=== PATIENT | female | born 1960 | race Asian ===

== ENCOUNTER 2019-08-22 02:08 | Emergency (ER) | payer MEDICAID ==
[~2019-08-22] VITALS: Ht 149.9 cm; Wt 50.0 kg
[~2019-08-22 02:08] MED LIST: ASPI-1 PO; ATOR20TA66 PO; FLUT16SP10 INH; IMIP50TA7 PO; LISI40TA4 PO; LORA10TA45 PO; OMEP20CA15 PO; RISP1TAB3 PO
--- NOTE | 2019-08-22 02:21 | NUR ---
poison control: recommended anti-emetics and basic lab draw. If symptoms progress, administer charcoal. Monitor patient for 6 hours.
[2019-08-22] MEDS ORDERED: normal saline 1000ML IV soln IVB ONE (02:25)
[2019-08-22] MEDS ORDERED: proCHLORperazine 10 MG/2 ml inj IV ONE (02:25)
[2019-08-22 02:39] LABS: BASOPHILS # (AUTO) 0.1 X10'3 (0-0.2); BASOPHILS % (AUTO) 0.6 % (0-1); EOSINOPHILS # (AUTO) 0.1 X10'3 (0-0.9); EOSINOPHILS % (AUTO) 1.4 % (0-6); HEMATOCRIT 40.9 % (35.0-45.0); LYMPHOCYTES # (AUTO) 1.8 X10'3 (1.1-4.8); LYMPHOCYTES % (AUTO) 22.2 % (21-51); MEAN CORPUSCULAR HGB CONC 34.3 g/dL (33.0-36.5); MEAN CORPUSCULAR VOLUME 90.4 FL (78-98); MONOCYTES # (AUTO) 0.6 X10'3 (0-0.9); MONOCYTES % (AUTO) 7.9 % (2-12); NEUTROPHILS # (AUTO) 5.5 X10'3 (1.8-7.7); NEUTROPHILS % (AUTO) 67.9 % (42-75); PLATELET COUNT 234 X10'3 (140-440); RED BLOOD COUNT 4.52 X10'6 (4.20-5.60); RED CELL DISTRIBUTION WIDTH 12.8 % (11.5-14.5); WHITE BLOOD COUNT 8.2 X10'3 (4.5-11.0)
[2019-08-22 02:55] LABS: ALANINE AMINOTRANSFERASE 28 U/L (12-78); ALKALINE PHOSPHATASE 72 IU/L (46-116); AMYLASE 95 U/L (25-115); ANION GAP 11 (8-16); ASPARTATE AMINO TRANSFERASE 25 U/L (10-37); BILIRUBIN,TOTAL 0.3 MG/DL (0.1-1.0); BLOOD UREA NITROGEN 14 MG/DL (7-18); BUN/CREATININE RATIO 13.5 (6.6-38.0); CHLORIDE 104 MMOL/L (99-107); CREATINE KINASE 294 U/L (26-192); CREATININE 1.04 MG/DL (0.40-0.90); ETHANOL < 0.010 GM/DL (0.0-0.010); GLUCOSE 154 MG/DL (70-104); LIPASE 252 U/L (73-393); MAGNESIUM 1.9 MG/DL (1.5-2.4); POTASSIUM 3.1 MMOL/L (3.5-5.1); SODIUM 142 MMOL/L (135-145); TOTAL CARBON DIOXIDE 27.3 MMOL/L (24-32); TOTAL PROTEIN 8.1 G/DL (6.4-8.2); eGFR 55 ML/MIN
[2019-08-22 02:55] LABS: CLARITY,URINE CLEAR (Clear); COLOR,URINE STRAW (Yellow); GLUCOSE, URINE NEGATIVE (Neg); KETONES,URINE NEGATIVE (Neg); LEUKOCYTE ESTERASE ,URINE NEGATIVE (Neg); NITRITES, URINE NEGATIVE (Neg); OCCULT BLOOD,URINE TRACE-INTACT (Neg); PROTEIN,URINE NEGATIVE (Neg); UROBILINOGEN,URINE 0.2 E.U/dL (0.2-1.0)
[2019-08-22 03:00] LABS: UA COLLECTION TYPE CLN CATCH MIDSTREAM; URINE AMPHETAMINE SCREEN NEGATIVE (Neg); URINE BARBITUATE SCREEN NEGATIVE (Neg); URINE BENZODIAZEPINES SCREEN NEGATIVE (Neg); URINE CANNABINOID SCREEN NEGATIVE (Neg); URINE COCAINE SCREEN NEGATIVE (Neg); URINE METHADONE SCREEN NEGATIVE (Neg); URINE OPIATE SCREEN NEGATIVE (Neg); URINE PHENCYCLIDINE SCREEN NEGATIVE (Neg)
[2019-08-22 03:02] LABS: BACTERIA,URINE NONE SEEN /HPF (Neg); RBC,URINE NONE SEEN /HPF (0-2); SQUAMOUS EPITHELIAL CELL,UR MODERATE /LPF (FEW); TRANSITIONAL EPI CELLS,URINE FEW /HPF; WBC,URINE NONE SEEN /HPF (0-4)
[2019-08-22 03:16] LABS: D-DIMER 0.37 MG/L FEU (0-0.50); PARTIAL THROMBOPLASTIN TIME 26 SECONDS (22-32)
--- NOTE | 2019-08-22 03:26 | NUR ---
pt sleeping, bp 168/109, otheriwse vss. son at bedside.
[2019-08-22 03:44] VITALS: BP 178/99
[2019-08-22] MEDS ORDERED: ONDA4TAB6 PO (03:44)
--- NOTE | 2019-08-22 03:44 | NUR ---
DR. LINN TALKING WITH PT AND HER SON (SON INTERPRETING)
== END 2019-08-22 03:59 | disposition home or self-care (01) ==
LOC: ER 02:09
DX: T62.0X1A Toxic effect of ingested mushrooms, accidental (unintentional), initial encounter (principal); R11.2 Nausea with vomiting, unspecified; E78.00 Pure hypercholesterolemia, unspecified; I10 Essential (primary) hypertension; Z79.82 Long term (current) use of aspirin; Z79.899 Other long term (current) drug therapy; Z98.890 Other specified postprocedural states; Z90.710 Acquired absence of both cervix and uterus; Y92.89 Other specified places as the place of occurrence of the external cause
CPT/HCPCS: 36415; 80053; 80305; 80320; 81001; 82150; 82550; 82948; 83690; 83735; 85025; 85379; 85610; 85730; 93005; 96361; 96374; 99284; J0780; J7030

== ENCOUNTER 2023-09-08 09:26 | Outpatient (CLI) | payer MEDICAID ==
[~2023-09-08 09:26] MED LIST changes: +LISI40TA13 PO; -LISI40TA4 PO; +ONDA4TAB6 PO; +RISP-31 PO; -RISP1TAB3 PO
== END 2023-09-08 23:59 | disposition home or self-care (01) ==
LOC: RAD 09:26
PROVIDERS: ATTEND Physician Assistant
DX: M79.602 Pain in left arm (principal)
CPT/HCPCS: 73090

== ENCOUNTER 2024-08-30 11:59 | Outpatient (CLI) | payer MEDICAID ==
[~2024-08-30 11:59] MED LIST changes: +IMIP50TA PO; -IMIP50TA7 PO
--- NOTE | 2024-08-30 13:44 | RADIOLOGY REPORT ---
ULTRASOUND SOFT TISSUE HEAD AND NECK CLINICAL INDICATION: R THYROID NODULE TECHNIQUE: Multiple real time sonographic images of the thyroid were obtained. COMPARISON: Prior exam dated none FINDINGS: The right thyroid gland measures 3.5 x 2.4 x 2.1 cm. The left thyroid gland measures approximately 5.6 x 2.1 x 2. cm. The isthmus measures 0.4 cm. There is a TI-RADS 3 nodule in the right mid thyroid gland measuring 2.1 cm. There is a TI-RADS 3 nod ule in the superior right thyroid gland measuring 1.4 cm. There is a TI-RADS 3 nodule in the right i nferior thyroid gland measuring 2.2 cm. There is a TI-RADS 3 nodule in the left superior thyroid glan d measuring 2.6 cm. There is a TI-RADS 3 nodule in the left mid thyroid gland measuring 2.3 cm. IMPRESSION: Bilateral TI-RADS 3 nodules with the largest measuring 2.2 cm in the right thyroid gland and 2.6 cm i n the left thyroid gland. [employer] TI-RADS Categories and Recommendations (2017): TR1: 0 points, Benign, No FNA TR2: 2 points, Not suspicious, No FNA TR3: 3 points, Mildly suspicious, FNA if > or = 2.5 cm, Follow if > or = 1.5 cm TR4: 4-6 points, Moderately Suspicious, FNA if > or = 1.5 cm, Follow if > or = 1.0 cm TR5: 7+ points, Highly Suspicious, FNA if > or = 1.0 cm, Follow if > or = 0.5 cm Follow-up ultrasound guidelines: TR5: yearly for 5 years, if no growth or change in TI-RADS level TR4: at 1, 2, 3 and 5 years, if no growth or change in TI-RADS level TR3: at 1, 3 and 5 years, if no growth or change in TI-RADS level If increased but below threshold for FNA, repeat in one year. Source: ACR Thyroid Imaging, Reporting and Data System (TI-RADS): White Paper of the ACR TI-RADS Committee. Mike et al., J Am Bassem Radiol 2017;14:587-595.
== END 2024-08-30 23:59 | disposition home or self-care (01) ==
LOC: RAD 11:59
PROVIDERS: ATTEND Nurse Practitioner
DX: E04.2 Nontoxic multinodular goiter (principal)
CPT/HCPCS: 76536